=== PATIENT | female | born 1980 | race Caucasian/White ===

== ENCOUNTER 2017-02-14 19:46 | Emergency (ER) | payer MEDICAID ==
[2016-07-18 06:19] VITALS: BMI 30.3
[~2017-02-14 19:46] MED LIST: HYDROCODONE-APA1 TAB PO; KEFLEX500 MG PO
[2017-02-14 20:25] LABS: BASOPHILS 0.2 % (0.0-2.0); EOSINOPHILS 3.4 % (0-7); HEMATOCRIT 41.9 % (36.0-48.0); HEMOGLOBIN 13.8 g/dL (12-16); IMMATURE GRANULOCYTES 0.2 % (0-5); LYMPHOCYTES 24.7 % (15-50); MCH 28.8 pg (26.0-34.0); MCHC 32.9 g/dL (31.0-37.0); MCV 87.5 fL (80.0-100.0); MEAN PLATELET VOLUME 11.1 fL (7.4-10.4); MONOCYTES 7.4 % (2-11); NEUTROPHILS 64.1 % (40-80); PLATELET COUNT 237 10x3/uL (130-400); RBC 4.79 10x6/uL (4.00-5.40); RDW 14.3 % (11.5-14.5); WBC 8.6 10x3/uL (4.8-10.8)
[2017-02-14 20:32] LABS: APPEARANCE CLEAR (CLEAR); BILIRUBIN NEGATIVE (NEGATIVE); COLOR YELLOW (YELLOW); GLUCOSE NEGATIVE (NEGATIVE); KETONE NEGATIVE (NEGATIVE); LEUKOCYTE ESTERASE TRACE (NEGATIVE); NITRITE NEGATIVE (NEGATIVE); PROTEIN NEGATIVE (NEGATIVE); SPECIFIC GRAVITY 1.015 (1.005-1.020); UROBILINOGEN NORMAL (NORMAL)
[2017-02-14 20:34] LABS: BACTERIA MODERATE /hpf (NONE SEEN); RED CELLS - URINE OCC /hpf (0-5)
[2017-02-14 20:35] LABS: MUCUS <1+ /lpf (NONE SEEN)
[2017-02-14 20:46] LABS: ALBUMIN 3.7 g/dL (3.4-5.0); ANION GAP 14.2 mmol/L (8-16); BILIRUBIN - TOTAL 0.21 mg/dL (0.2-1.3); CALCIUM 8.4 mg/dL (8.5-10.1); POTASSIUM - SERUM 4.2 mmol/L (3.5-5.1); PROTEIN - SERUM 7.5 g/dL (6.4-8.2)
[2017-02-14 21:08] LABS: HCG SERUM NEGATIVE (NEGATIVE)
== END 2017-02-14 23:30 | disposition home or self-care (01) ==
LOC: D.ER 19:46
PROVIDERS: Family Medicine; Physician Assistant
DX: R10.9 Unspecified abdominal pain (principal); N39.0 Urinary tract infection, site not specified; K29.70 Gastritis, unspecified, without bleeding; H66.92 Otitis media, unspecified, left ear

== ENCOUNTER 2018-10-22 18:09 | Emergency (ER) | payer OTHER ==
[~2018-10-22] VITALS: Ht 154.9 cm; Wt 77.3 kg
[2018-10-22 18:32] VITALS: Ht 154.9 cm; Wt 77.3 kg
[2018-10-22 18:52] LABS: BASOPHILS 0.2 % (0-2); EOSINOPHILS 2.5 % (0-7); HEMATOCRIT 40.3 % (36.0-48.0); HEMOGLOBIN 13.5 g/dL (12-16); IMMATURE GRANULOCYTES 0.2 % (0-5); LYMPHOCYTES 22.3 % (15-50); MCH 29.1 pg (26.0-34.0); MCHC 33.5 g/dL (31.0-37.0); MCV 86.9 fL (80.0-100.0); MEAN PLATELET VOLUME 10.8 fL (7.4-10.4); MONOCYTES 6.6 % (2-11); NEUTROPHILS 68.2 % (40-80); PLATELET COUNT 261 10x3/uL (130-400); RBC 4.64 10x6/uL (4.00-5.40); RDW 15.2 % (11.5-14.5); WBC 10.7 10x3/uL (4.8-10.8)
[2018-10-22 19:10] LABS: INR 1.02 (0.85-1.17); PROTIME 12.9 SECONDS (11.6-15.0)
[2018-10-22 19:11] LABS: APTT 31.6 SECONDS (22.8-39.4)
[2018-10-22 19:12] LABS: ALBUMIN 3.3 g/dL (3.4-5.0); ALKALINE PHOSPHATASE 53 U/L (46-116); ALT (SGPT) 22 U/L (10-68); BILIRUBIN - TOTAL 0.18 mg/dL (0.2-1.3); CALC OSMOLALITY 274 mosm/kg (275-300); CALCIUM 8.5 mg/dL (8.5-10.1); CARBON DIOXIDE 26.6 mmol/L (21.0-32.0); CHLORIDE - SERUM 104 mmol/L (98-107); CREATININE - SERUM 0.8 mg/dL (0.6-1.3); GLUCOSE 74 mg/dL (74-106); POTASSIUM - SERUM 4.2 mmol/L (3.5-5.1); PROTEIN - SERUM 7.3 g/dL (6.4-8.2); SODIUM 139 mmol/L (136-145); UREA NITROGEN 7 mg/dL (7-18); eGFR NON AFRICAN AMERICAN 85 mL/min (90-120)
[2018-10-22] MEDS ORDERED: ULTRAM50 MG PO (22:44)
[2018-10-22 23:29] VITALS: BP 103/63
== END 2018-10-22 23:30 | disposition home or self-care (01) ==
LOC: D.ER 18:09
PROVIDERS: Family Medicine
DX: R51 Headache (principal); R11.0 Nausea; Q85.00 Neurofibromatosis, unspecified; F17.200 Nicotine dependence, unspecified, uncomplicated

== ENCOUNTER 2021-02-01 06:10 | Day surgery (SDC) | payer BC ==
[~2021-02-01] VITALS: Ht 154.9 cm; Wt 97.5 kg
--- NOTE | ~2021-02-01 | OP ---
PATIENT NAME: ESTHER JURADO MEDICAL RECORD: [id number] :82 LOCATION:[facility] ADMISSION DATE: SURGEON: ZAIRE BENITES DPM DATE OF OPERATION: 02/01/2021 PREOPERATIVE DIAGNOSIS: Hallux abductovalgus, right foot. POSTOPERATIVE DIAGNOSIS: Hallux abductovalgus, right foot. PROCEDURE: Right Semaj bunionectomy with 0.062 inch K-wire fixation. ANESTHESIA: General with local infiltrate utilizing 17 mL of 1:1 mix of lidocaine and Marcaine around the right first ray. HEMOSTASIS: Right ankle Esmarch. PREOPERATIVE DETAILS: The patient was taken to the OR and placed on the operating table in a supine position. This was followed by induction of general anesthesia and infiltration of local anesthetic. The right extremity was then prepped and draped in the usual aseptic technique followed by exsanguination with the Esmarch and the Esmarch was secured around the right ankle. A #15 blade was used to create a 3 to 3.5 cm linear incision over the dorsal aspect of the right first metatarsal extending to the base of the proximal phalanx of the hallux. The incision was deepened down through subcutaneous tissue to the joint capsule. An inverted L capsulotomy was performed and the head of the first metatarsal was delivered. A sagittal saw was used to resect the medial eminence. Attention was then directed to the first interspace where a lateral release was performed. Good clinical reduction of the lateral contracture was verified. Attention was then redirected to the medial aspect of the head of first metatarsal where a sagittal saw was used to create a V osteotomy through and through. The capital fragment was translocated laterally and fixated with a 0.062 inch K-wire. The pin was cut. The medial redundant shelf was resected with a bone saw. The wound was flushed. Excellent range of motion was noted as well as alignment of the first ray. A 2-0 Vicryl was then used to repair the joint capsule followed by reapproximation of the subcutaneous tissue with 4-0 Rapide. The skin was then closed with 4-0 Rapide in a subcuticular technique followed by Dermabond, Adaptic, 4 x 4 and conform were used to dress the wound followed by an Jassi wrap. The Esmarch was removed. The patient tolerated the procedure well and left the OR with vital signs stable and vascular status at preoperative levels. The patient was transported to recovery per anesthesia in stable condition. TRANSINT:[id number] Voice Confirmation ID: [id number] DOCUMENT ID: [id number] ZAIRE BENITES DPM CC: [id number] DICTATION DATE: 02/01/21927 DRILLING ENGINEER: 02/01/21 1517 [facility] [place] 02/01/21 [place] [id number] [place] [id number]
[~2021-02-01 06:10] MED LIST changes: +ERGOCALCIF50000 UNIT PO; +ULTRAM50 MG PO
[2021-02-01 06:51] LABS: HCG SERUM NEGATIVE (NEGATIVE)
[2021-02-01 06:53] LABS: HEMATOCRIT 41.1 % (36.0-48.0); HEMOGLOBIN 13.2 g/dL (12-16); MCH 26.7 pg (26.0-34.0); MCHC 32.1 g/dL (31.0-37.0); MEAN PLATELET VOLUME 10.4 fL (7.4-10.4); RBC 4.95 10x6/uL (4.00-5.40); WBC 10.7 10x3/uL (4.8-10.8)
[2021-02-01 07:53] VITALS: BP 120/69; Ht 154.9 cm; Wt 97.5 kg
--- NOTE | 2021-02-01 11:30 | NUR ---
IV DC'D WITH TIP INTACT, DISCHARGE INSTRUCTIONS PROVIDED. WHEELED OUT TO .
== END 2021-02-01 11:30 | disposition home or self-care (01) ==
LOC: D.OPS 06:10
PROVIDERS: Anesthesiology; ATTEND Podiatrist
DX: M20.11 Hallux valgus (acquired), right foot (principal)